=== PATIENT | male | born 1980 | race Caucasian/White ===

== ENCOUNTER 2023-03-11 14:12 | Emergency (ER) | payer BC, SELFPAY ==
[2023-03-11 14:14] VITALS: BP 148/90; PULSE 64; RESP 18; TEMP 36.3; O2SAT 100; BMI 27.9
--- NOTE | 2023-03-11 14:45 | EX.ED.VIS.EY ---
HPI <DB Willson - Last Filed: 03/11/23 15:33> History of Present Illness Chief Complaint: Eye Problem Narrative Narrative: 43-year-old male presents with left eye pain. He thinks tea tree oil spilled into his contact case because it started after he put his contacts in. It is only affecting his left eye. This occurred around 9 AM and he flushed the eye under the faucet for 30 minutes but still has persistent pain. PFSH <DB Willson - Last Filed: 03/11/23 15:33> PFSH Allergy/AdvReac Type Severity Reaction Status Date / Time buspirone [From BuSpar] Allergy Nausea Verified 03/11/23 14:14 midazolam [From Versed] Allergy Nausea Verified 03/11/23 14:14 Social History Smoking Status: Never smoker ROS <DB Willson - Last Filed: 03/11/23 15:33> ROS ED ROS Narrative Constitutional: Negative for fever, chills, malaise. Eyes: Positive for eye pain. Negative for visual change. EXAM <DB Willson Last Filed: 03/11/23 15:33> Physical Exam Narrative Exam Narrative: CONST: Patient sitting in no acute distress. EYES: Normal inspection. ENT: Left eye has mild scleral injection and photophobia, PERRLA, EOMI. Chronic left lazy eye. After fluorescein stain slit-lamp shows no uptake or ulcers, negative Marcelino sign. NECK: Normal inspection. SKIN: Color normal, no rash, warm, dry, intact. EXTREMITIES: Normal appearance, no pedal edema. NEURO: Oriented x4. PSYCH: Normal affect. Const Vital Signs: 03/11/23 14:14 Temperature 97.4 F L Temperature Source Temporal Pulse Rate 64 Respiratory Rate 18 Blood Pressure 148/90 H Blood Pressure Mean 109 Pulse Ox 100 Oxygen Delivery Method Room Air MDM <DB Willson Last Filed: 03/11/23 15:33> [facility] MDM Narrative Medical decision making narrative: History gathered from: Patient and Patient got 2 tree oil into his left eye and thoroughly flushed it for 30 minutes prior to arrival. He still has pain and photophobia. After tetracaine his pain improved and he is able to fully open his eye. Eyes mildly injected. I fluorescein stain and examined under slit lamp and there is no major abnormalities or ulcerations. He likely denuded the corneal epithelium from aggressive flushing of the eye. I prescribed Cipro drops with first dose given here and he will follow-up with his established neurological surgeon. Differential: Chemical eye exposure, corneal abrasion, ulcer <Nile Alvarez MD - Last Filed: 03/11/23 16:17> [facility] Narrative Medical decision making narrative: History gathered from: Patient and Patient got 2 tree oil into his left eye and thoroughly flushed it for 30 minutes prior to arrival. He still has pain and photophobia. After tetracaine his pain improved and he is able to fully open his eye. Eyes mildly injected. I fluorescein stain and examined under slit lamp and there is no major abnormalities or ulcerations. He likely denuded the corneal epithelium from aggressive flushing of the eye. I prescribed Cipro drops with first dose given here and he will follow-up with his established neurological surgeon. Differential: Chemical eye exposure, corneal abrasion, ulcer Dr. Alvarez: I have personally performed a face to face assessment of the patient and have reviewed the [facility] Note. I performed a substantive portion of the visit including all aspects of the following. My tracey findings include: History is left eye pain and irritation after accidentally inserting tea tree oil and this morning. Patient has already irrigated the left eye for 30 minutes. No loss of vision. Exam is afebrile. Vital signs noted. Mild left conjunctival injection, PERRL, EOMI. Medical Decision Making: Tetracaine. Fluorescein. Examined under slit lamp. Treat as corneal injury/corneal abrasion. Antibiotics/ophthalmic antibiotics. Follow-up ophthalmology. Discharge. Other additions or changes: [None] Discharge Plan Triage Chief Complaint: Eye Problem ED Midlevel Provider: Soumya Lee ED Provider: Nile Alvarez Dx/Rx/DC Orders Clinical Impression: Chemical injury to cornea of left eye Instructions: Corneal Injury Primary Care Provider: Care Physician,No Primary Activity Restrictions/Additional Instructions: Apply to Cipro drops to your left eye 4 times a day for the next 5 days. I recommend ibuprofen every 6 hours as needed for pain. Do not wear your contacts until it fully heals and follow-up with your neurological surgeon Disposition Disposition: Home, Self Care Discharge Date/Time: 03/11/23 15:55
[2023-03-11] MEDS: Tetracaine 0.5% Ophthalmic Bottle 1 DRP EACH EYE (15:16)
[2023-03-11] MEDS: Ondansetron ODT 4 MG Tablet PO (15:17)
[2023-03-11] MEDS: Fluorescein 1 MG STRIP 1 STRIP LEFT EYE (15:17)
[2023-03-11] MEDS: Ciprofloxacin 0.3% 2.5ml Bottle 2 DRP LEFT EYE (15:31)
== END 2023-03-11 15:55 | disposition home or self-care (01) ==
LOC: ED 15:49
PROVIDERS: Emergency Provider Emergency Medicine; Visit Provider Emergency Medicine
DX: T54.91XA Toxic effect of unspecified corrosive substance, accidental (unintentional), initial encounter (principal); H53.149 Visual discomfort, unspecified; H57.12 Ocular pain, left eye; S05.8X2A Other injuries of left eye and orbit, initial encounter
CPT/HCPCS: 99282